=== PATIENT | female | born 1940 ===

== ENCOUNTER 2017-01-02 13:13 | Emergency (ER) | payer MEDICARE, OTHER ==
[2017-01-02 13:34] VITALS: TEMP 98
[2017-01-02 13:53] VITALS: O2SAT 96
--- NOTE | 2017-01-02 14:09 | C.PDOC ---
History Of Present Illness 76-year-old female, presents to the emergency department with complaints of recurring headache that has been ongoing for the past five days due to blood pressure. Patient states headache is intermittent, and blood pressure is 180/80 at home and is normally 100/97, resulting in her coming to the ED for evaluation. Denies nausea/vomiting, numbness/weakness, or any other associated symptoms. No other complaints at this time. Chief Complaint (Nursing): Headache History Per: Patient History/Exam Limitations: no limitations Past Medical History Reviewed: Historical Data, Nursing Documentation, Vital Signs Vital Signs: Last Vital Signs Temp 98.0 F 01/02/17 13:32 Pulse 53 L 01/02/17 13:45 Resp 20 01/02/17 13:45 BP 187/91 H 01/02/17 13:45 Pulse Ox 96 01/02/17 14:29 - Medical History PMH: HTN Family History: States: No Known Family Hx - Social History Hx Tobacco Use: No Hx Alcohol Use: No Hx Substance Use: No - Immunization History Hx Influenza Vaccination: Yes Hx Pneumococcal Vaccination: No Review Of Systems Except As Marked, All Systems Reviewed And Found Negative. Constitutional: Negative for: Fever Gastrointestinal: Negative for: Vomiting Musculoskeletal: Negative for: Back Pain Neurological: Positive for: Headache. Negative for: Weakness, Numbness, Dizziness Physical Exam - Physical Exam Appears: Non-toxic, No Acute Distress Skin: Warm, Dry, No Rash Head: Atraumatic, Normacephalic Eye(s): bilateral: Normal Inspection, PERRL Nose: Normal Oral Mucosa: Moist Lips: Normal Appearing Neck: Normal ROM Cardiovascular: Rhythm Regular, No Murmur Respiratory: Normal Breath Sounds, No Accessory Muscle Use Extremity: Normal ROM Neurological/Psych: Oriented x3, Normal Speech, Normal Cranial Nerves (II-XII intact), Normal Motor, Normal Sensation, Other (No focal deficit) ED Course And Treatment O2 Sat by Pulse Oximetry: 96 Progress - Re-Evaluation Re-evaluation Note: 01/02/17 15:33 141/70 SHOOK RESOLVED. NEURO INTACT - Data Reviewed Data Reviewed: Old records Disposition Counseled Patient/Family Regarding: Studies Performed, Diagnosis, Need For Followup - Disposition Referrals: YOUR,PMD [Other] Disposition: HOME/ ROUTINE Disposition Time: 15:34 Condition: IMPROVED Instructions: Acute Headache (ED), Hypertension (ED) Forms: [employer] (Lithuanian) - Clinical Impression Clinical Impression: Headache, Hypertension - Scribe Statement The provider has reviewed the documentation as recorded by the Scribe (Yun Sandoval) All medical record entries made by the Scribe were at my direction and personally dictated by me. I have reviewed the chart and agree that the record accurately reflects my personal performance of the history, physical exam, medical decision making, and the department course for this patient. I have also personally directed, reviewed, and agree with the discharge instructions and disposition.
--- NOTE | 2017-01-02 15:10 | CT ---
PROCEDURE: CT HEAD WITHOUT CONTRAST. HISTORY: SHOOK, HTN COMPARISON: None available. TECHNIQUE: Axial computed tomography images were obtained through the head/brain without intravenous contrast. Radiation dose: Total exam DLP = 705.91 MGy-cm. This CT exam was performed using one or more of the following dose reduction techniques: Automated exposure control, adjustment of the mA and/or kV according to patient size, and/or use of iterative reconstruction technique. FINDINGS: HEMORRHAGE: No intracranial hemorrhage. BRAIN: There are mild chronic microangiopathic changes. There is no mass, mass effect or abnormal extra-axial fluid collection. VENTRICLES: There is mild age-related global parenchymal volume loss and proportionate enlargement of the ventricles and cortical sulci. CALVARIUM: The skull base and calvarium are normal. PARANASAL SINUSES: Predominantly clear. MASTOID AIR CELLS: Predominantly clear. OTHER FINDINGS: None IMPRESSION: No acute intracranial abnormality.
[2017-01-02 16:05] VITALS: BP 141/86; PULSE 52; RESP 18
== END 2017-01-02 15:35 | disposition home or self-care (01) ==
LOC: C.ER 13:13
DX: I10 Essential (primary) hypertension (principal); R51 Headache